=== PATIENT | male | born 1960 | race Caucasian/White ===

== ENCOUNTER 2020-01-19 10:00 | Day surgery (SDC) | payer OTHER ==
[2020-01-15 10:10] VITALS: BMI 35.9
--- NOTE | 2020-01-19 10:52 | EKG ---
Test Reason : Blood Pressure : / mmHG Vent. Rate : 078 BPM Atrial Rate : 078 BPM P-R Int : 162 ms QRS Dur : 074 ms QT Int : 372 ms P-R-T Axes : 064 051 067 degrees QTc Int : 424 ms NORMAL SINUS RHYTHM NONSPECIFIC T WAVE ABNORMALITY ABNORMAL ECG NO PREVIOUS ECGS AVAILABLE Confirmed by Rachel Beckford ([id number]) on 01/19/2020 10:51:23 AM Referred By: PORTER ALICEA Confirmed By:Rachel Beckford
[2020-01-19 11:03] LABS: HEMATOCRIT 42.8 % (35.4-49); HEMOGLOBIN 14.6 GM/dL (11.7-16.9); MCH 32.6 pg (25.7-33.7); MEAN PLT VOLUME 7.7 fl (7.5-11.1); PLATELET COUNT 222 K/MM3 (134-434); RBC 4.46 M/mm3 (4.00-5.60); RDW 13.2 % (11.9-15.9); WHITE BLOOD COUNT 6.9 K/mm3 (4.0-10.0)
[2020-01-19 11:06] LABS: INR 1.08 (0.83-1.09); PROTHROMBIN TIME (PATIENT) 12.8 SEC (9.7-13.0)
[2020-01-19 11:24] LABS: ALBUMIN 3.7 g/dl (3.4-5.0); BILIRUBIN,TOTAL 0.8 mg/dL (0.2-1); BLOOD UREA NITROGEN 17.2 mg/dL (7-18); CALCIUM 9.2 mg/dL (8.5-10.1); POTASSIUM 3.9 mmol/L (3.5-5.1); TOT PROT 7.2 g/dl (6.4-8.2)
--- NOTE | 2020-01-19 11:34 | HP ---
History & Physical Update - History History: No Change - Physical Physical: No Change - Assessment Assessment: No Change - Plan Plan: No Change (Full H&P is complete/accurate and located in patient's paper chart (will be scanned into his [facility]). No new complaints or medications.)
[2020-01-19] MEDS ORDERED: ceFAZolin SODIUM 1 GM VIAL IVPB ONE (12:45)
[2020-01-19] MEDS ORDERED: BUPIVACAINE HCL/PF 0.5% (5MG/ML) 10 ML VIAL NR ONE (13:35)
--- NOTE | 2020-01-19 13:44 | OP ---
Operative Note - Note: Operative Date: 01/19/20 Pre-Operative Diagnosis: umbilical hernia Operation: repair umbilical hernia Findings: 2.5 cm defect at the umbilicus. Post-Operative Diagnosis: Same as Pre-op Surgeon: Esvin Hollingsworth [employer] Consultant: Pranav Christopher Anesthesiologist/FIXED INCOME MANAGER: Swetha Molina Anesthesia: General (with block) Specimens Removed: sac Estimated Blood Loss (mls): 10
--- NOTE | 2020-01-19 14:00 | SURG ---
Surgery Spring Intern Note Spring Intern: Pranav Christopher PA-C Date of Service: 01/19/20 Diagnosis: umbilical hernia Procedure: repair umbilical hernia (close defect pirmarily with prolene sutures) I was present for the entirety of the operative procedure. For further detail, please refer to operative report. Visit type - Case Type Case Type: Scheduled - New patient This patient is new to me today: Yes Date on this admission: 01/19/20
[2020-01-19] MEDS ORDERED: ACETAMINOPHEN 1000 MG/100 ML VIAL (NON FORMULARY) IVPB ONE ×2 (14:02→14:28)
[2020-01-19] MEDS ORDERED: oxyCODONE HCL 5 MG TABLET PO PRN (14:33)
[2020-01-19] MEDS ORDERED: ONDANSETRON 4 MG/2 ML VIAL IVPUSH PRN (14:33)
[2020-01-19] MEDS ORDERED: LACTATED RINGERS SOLUTION 1,000 ML IV SCH (14:45)
[2020-01-19 16:09] VITALS: BP 140/79; TEMP 97.4
[2020-01-19 17:16] VITALS: PULSE 95
[2020-01-19] MEDS ORDERED: KETOROLAC TROMETHAMINE 10 MG TABLET PO SCH (18:00)
--- NOTE | 2020-01-21 17:33 | PATH ---
Surgical Pathology Report Patient Name: KEILA MENENDEZ [facility]. Rec. #: [id number] /Age/Gender: 1960 (Age: 59) / M Account: [id number] Location: [facility] SURGICAL Taken: 01/19/2020 Received: 01/20/2020 Reported: 01/21/2020 Physicians: Esvin Hollingsworth MD Specimen(s) Received UMBILICAL HERNIA SAC Clinical History Umbilical hernia Final Diagnosis UMBILICAL HERNIA SAC, REPAIR:FIBROMEMBRANOUS AND FIBROADIPOSE TISSUE COMPATIBLE WITH HERNIA SAC. Electronically Signed Madyson Sommer M.D. Gross Description Received in formalin labeled "umbilical hernia sac," is a 7.0 x 7.0 x 1.8 cm aggregate of alcaraz ngo portions of fibromembranous tissue with attached fat, consistent with a hernia. Skiff Operator sections are submitted in one cassette. /01/20/2020 saudi01/20/2020
--- NOTE | 2020-01-21 22:51 | OP ---
DATE OF OPERATION: 01/19/2020 PREOPERATIVE DIAGNOSIS: Umbilical hernia. POSTOPERATIVE DIAGNOSIS: Umbilical hernia. PROCEDURE: Repair, umbilical hernia. SURGEON: Esvin Hollingsworth MD. ADJUNCT WRITING INSTRUCTOR: Pranav Christopher PA-C. ANESTHESIA: General. OPERATIVE FINDINGS: There was a 2.5-cm defect in the abdominal wall at the umbilicus. The defect contained omentum which was not incarcerated, and the rest of the findings were unremarkable. PROCEDURE: The patient was placed on the operating room table in the supine position. After induction of general anesthesia, the patient's abdomen was prepped with ChloraPrep and draped in sterile fashion. A timeout was taken, and then infraumbilical skin crease incision was made from 3 to 9 o'clock using the scalpel. This was taken down through skin and subcutaneous tissue to the level of the abdominal wall fascia. The umbilical stalk was bluntly encircled using the Rose clamp, and then the umbilicus dissected off the abdominal wall. The sac was entered, and redundant sac was excised using electrocautery. This was sent to pathology. The undersurface of the abdominal wall was cleared using blunt dissection, and then the hernia repaired using multiple horizontal mattress sutures of 0 Prolene. Hemostasis was secured with electrocautery, and the wound copiously irrigated with sterile saline. The operative field was infiltrated with 0.5% Marcaine, and then the umbilicus tacked down to the suture line of the repair with interrupted 2-0 Vicryl. The deep dermis was then reapproximated with interrupted 3-0 Vicryl, and the skin edges with 4-0 Monocryl in a subcuticular continuous fashion. Steri-Strips and dry sterile dressings were placed, and the procedure terminated at this point. The patient aroused from general anesthesia and transferred to the post anesthesia care unit in stable condition, awake and alert. Estimated blood loss 10 mL. Replacements crystalloid. Drains none. Specimen hernia sac to pathology. I, Esvin Hollingsworth, was physically present in the operating room from the time the patient was placed on the operating room table until he was transferred to the postanesthesia care unit in my accompaniment. MD ARCHANA Pineda/[id number] [facility]
== END 2020-01-19 17:35 | disposition home or self-care (01) ==
LOC: JASU-SURG 10:00
PROVIDERS: ATTEND Surgery
PROC: 0WQF0ZZ Repair Abdominal Wall, Open Approach (ICD-10-PCS; principal; 2020-01-19 12:00)
DX: K42.9 Umbilical hernia without obstruction or gangrene (principal); I10 Essential (primary) hypertension; E66.01 Morbid (severe) obesity due to excess calories
CPT/HCPCS: 36415; 80053; 85027; 85610; 86850; 86900; 86901; 88302-TC; 93005; 93010; 94760; J0131

== ENCOUNTER 2020-03-04 05:03 | Day surgery (SDC) | payer OTHER ==
[2020-03-02 09:23] VITALS: BMI 40.1
[2020-03-04 11:31] VITALS: BP 150/78; PULSE 80; TEMP 98.9
== END 2020-03-04 11:53 | disposition home or self-care (01) ==
LOC: JASU-ENDO 05:03
PROVIDERS: ATTEND Internal Medicine Gastroenterology
PROC: 0DJD8ZZ Inspection of Lower Intestinal Tract, Via Natural or Artificial Opening Endoscopic (ICD-10-PCS; principal; 2020-03-04 10:00)
DX: Z12.11 Encounter for screening for malignant neoplasm of colon (principal); K57.30 Diverticulosis of large intestine without perforation or abscess without bleeding; K64.8 Other hemorrhoids

== ENCOUNTER 2020-05-03 05:02 | Day surgery (SDC) | payer OTHER ==
[2020-04-30 13:00] VITALS: BMI 35.9
[2020-05-03] MEDS ORDERED: ONDANSETRON 4 MG/2 ML VIAL IVPUSH PRN (12:02)
[2020-05-03] MEDS ORDERED: oxyCODONE HCL 5 MG TABLET PO PRN ×2 (12:02)
[2020-05-03] MEDS ORDERED: BUPIVACAINE HCL 50 ML ONE (12:13)
[2020-05-03] MEDS ORDERED: LIDOCAINE HCL 1%, 10 MG/ML (20ML VIAL) ONE (12:13)
[2020-05-03] MEDS ORDERED: LACTATED RINGERS SOLUTION 1,000 ML IV SCH (12:15)
[2020-05-03] MEDS ORDERED: MIDAZOLAM HCL 2 MG/2 ML SINGLE DOSE VIAL ONE (12:27)
[2020-05-03] MEDS ORDERED: BUPIVACAINE HCL/PF 0.5% (5MG/ML) 10 ML VIAL IJ ONE ×2 (13:24)
[2020-05-03] MEDS ORDERED: LIDOCAINE HCL 1%, 10 MG/ML (20ML VIAL) ID ONE ×2 (13:25)
[2020-05-03] MEDS ORDERED: ALBUTEROL SO4 0.083% IH SOL 2.5 MG/3 ML VIAL.NEB. NEB ONE ×3 (14:47→15:15)
[2020-05-03] MEDS ORDERED: ALBUTEROL SO4 0.042% IH SOL 1.25 MG/3 ML VIAL.NEB NEB ONE (14:52)
[2020-05-03 16:39] VITALS: PULSE 98; TEMP 98.2
[2020-05-03 17:33] VITALS: BP 140/90
== END 2020-05-03 17:20 | disposition home or self-care (01) ==
LOC: JASU-SURG 05:02
PROVIDERS: ATTEND Surgery
PROC: 0JBL0ZZ Excision of Right Upper Leg Subcutaneous Tissue and Fascia, Open Approach (ICD-10-PCS; 2020-05-03)
PROC: 0JB40ZZ Excision of Right Neck Subcutaneous Tissue and Fascia, Open Approach (ICD-10-PCS; principal; 2020-05-03 13:30)
DX: D17.0 Benign lipomatous neoplasm of skin and subcutaneous tissue of head, face and neck (principal); D17.23 Benign lipomatous neoplasm of skin and subcutaneous tissue of right leg
CPT/HCPCS: 71045-TC-FY; 88304-TC; 94010; 94760

== ENCOUNTER 2022-11-02 06:10 | Day surgery (SDC) | payer OTHER ==
[2022-10-26 12:06] VITALS: BMI 30.1
[2022-11-02] MEDS ORDERED: BUPIVACAINE HCL/EPINEPHRINE/PF 30 ML VIAL IJ ONE (07:08)
[2022-11-02] MEDS ORDERED: BUPIVACAINE HCL/PF 0.25% (2.5MG/ML) 10 ML VIAL ONE ×2 (07:08→08:50)
[2022-11-02] MEDS ORDERED: EPINEPHrine 1:1,000 1,000 MCG/ML ML ONE (07:09)
[2022-11-02] MEDS ORDERED: MIDAZOLAM HCL 2 MG/2 ML SINGLE DOSE VIAL ONE (07:13)
[2022-11-02] MEDS ORDERED: PROPOFOL 20 ML ONE ×2 (07:13→08:57)
[2022-11-02] MEDS ORDERED: LIDOCAINE HCL/PF 2% SDV 5ML VIAL ONE (07:14)
[2022-11-02] MEDS ORDERED: LIDOCAINE HCL 2% JELLY 11 ML TP ONE (07:15)
[2022-11-02] MEDS ORDERED: ONDANSETRON 4 MG/2 ML VIAL IVPUSH PRN (09:07)
[2022-11-02] MEDS ORDERED: PROMETHAZINE HCL 25 MG/1 ML VIAL IVPB PRN (09:07)
[2022-11-02] MEDS ORDERED: ACETAMINOPHEN 500 MG TABLET (FP) PO PRN (09:38)
[2022-11-02] MEDS ORDERED: oxyCODONE HCL 5 MG TABLET PO PRN (09:39)
[2022-11-02 10:37] VITALS: BP 123/71; PULSE 78; RESP 20; TEMP 97.2
== END 2022-11-02 10:30 | disposition home or self-care (01) ==
LOC: FASU 06:10
PROVIDERS: ATTEND Orthopaedic Surgery
PROC: 0SBC4ZZ Excision of Right Knee Joint, Percutaneous Endoscopic Approach (ICD-10-PCS; principal; 2022-11-02 08:05)
DX: S83.241A Other tear of medial meniscus, current injury, right knee, initial encounter (principal); M94.261 Chondromalacia, right knee; M65.9 Synovitis and tenosynovitis, unspecified; X58.XXXA Exposure to other specified factors, initial encounter; Y93.9 Activity, unspecified; Y92.9 Unspecified place or not applicable
CPT/HCPCS: 94760